=== PATIENT | female | born 1950 | race Caucasian/White ===

== ENCOUNTER 2021-05-12 08:37 | Day surgery (SDC) | payer MEDICARE, OTHER ==
[~2021-05-12] VITALS: Ht 160 cm; Wt 76.9 kg
[2021-05-12] VITALS (7 sets, daily range): BP systolic 117–142; BP diastolic 48–75
[2021-05-12] MEDS ORDERED: LIDOcaine 1%/PF 5ML 10 MG/ML VIAL ONE ×2 (08:51→10:14)
[2021-05-12] MEDS ORDERED: normal saline 1000ml 1,000 ML IV SCH (09:30)
[2021-05-12 09:36] LABS: BASOPHILS % (AUTO) 0.6 % (0-1); EOSINOPHILS # (AUTO) 0.1 X10'3 (0-0.9); HEMATOCRIT 38.2 % (35.0-45.0); HEMOGLOBIN 12.6 g/dl (12.0-16.0); LYMPHOCYTES # (AUTO) 0.7 X10'3 (1.1-4.8); LYMPHOCYTES % (AUTO) 16.6 % (21-51); MEAN CORPUSCULAR HEMOGLOBIN 28.6 PG (27.0-31.0); MEAN CORPUSCULAR VOLUME 86.7 FL (78-98); MEAN PLATELET VOLUME 7.5 FL (7.4-10.4); MONOCYTES # (AUTO) 0.4 X10'3 (0-0.9); NEUTROPHILS # (AUTO) 2.8 X10'3 (1.8-7.7); NEUTROPHILS % (AUTO) 68.8 % (42-75); PLATELET COUNT 214 X10'3 (140-440); RED CELL DISTRIBUTION WIDTH 16.1 % (11.5-14.5)
[2021-05-12] MEDS ORDERED: CHOL10006 PO (09:43)
[2021-05-12] MEDS ORDERED: OMEG10006 PO (09:43)
[2021-05-12] MEDS ORDERED: VITA1CAP PO (09:43)
[2021-05-12] MEDS ORDERED: ESCI20TA15 PO (09:43)
[2021-05-12] MEDS ORDERED: ASPI81TA30 PO (09:43)
[2021-05-12] MEDS ORDERED: HYDR25TA5 PO (09:43)
[2021-05-12] MEDS ORDERED: BIOT1TAB7 PO (09:43)
[2021-05-12] MEDS ORDERED: DULO-31 PO (09:43)
[2021-05-12] MEDS ORDERED: SIMV-42 PO (09:43)
[2021-05-12] MEDS ORDERED: LISI-790 PO (09:43)
[2021-05-12] MEDS ORDERED: UBID50TA3 PO (09:43)
[2021-05-12] MEDS ORDERED: midazolam 1 mg/ML 2ml injection ONE ×2 (10:14→11:13)
[2021-05-12] MEDS ORDERED: fentaNYL/PF 50MCG/1 ML 2ML syringe ONE ×2 (10:14→11:13)
[2021-05-12] MEDS ORDERED: heparin sodium, porcine/PF 100unit/ml 5ML syringe ONE (10:14)
[2021-05-12] MEDS ORDERED: LIDOcaine 1% W/epiNEPHrine 1:200,000 10ml vial ONE ×2 (11:10→11:58)
[2021-05-12] MEDS ORDERED: gelatin sponge, absorbable (Gelfoam 12-7MM) sponge TP ONE (11:40)
== END 2021-05-12 14:20 | disposition home or self-care (01) ==
LOC: SSTAY O 08:37
PROVIDERS: ATTEND Preventive Medicine Aerospace Medicine
DX: K76.89 Other specified diseases of liver (principal); C21.8 Malignant neoplasm of overlapping sites of rectum, anus and anal canal; C78.7 Secondary malignant neoplasm of liver and intrahepatic bile duct; Z88.0 Allergy status to penicillin; Z79.899 Other long term (current) drug therapy; Z79.82 Long term (current) use of aspirin
CPT/HCPCS: 36415; 36561; 47000; 76937; 76942; 77001; 85025; 85610; 99152; 99153; C1769; C1788; C1894; J1642; J2250; J3010; 88305; 88341; 88342

== ENCOUNTER 2025-07-25 06:52 | Day surgery (SDC) | payer MEDICARE, OTHER ==
[2025-07-23 10:52] LABS: CREATININE 0.85 MG/DL (0.40-0.90); MEAN PLATELET VOLUME 7.8 FL (7.4-10.4); PRE OP ALT 14 U/L (30-65); PRE OP ANION GAP 7 (8-16); PRE OP AST 19 U/L (10-37); PRE OP BILIRUB, TOTAL 0.4 MG/DL (0.0-1.0); PRE OP GLUCOSE 80 MG/DL (70-104); PRE OP HEMATOCRIT 39.7 % (35.0-45.0); PRE OP HEMOGLOBIN 13.6 g/dL (12.0-16.0); PRE OP PLATELET COUNT 197 X10'3 (140-440); PRE OP POTASSIUM 3.5 MMOL/L (3.4-5.1); PRE OP SODIUM 144 MMOL/L (135-145); PRE OP WHITE BLOOD COUNT 4.9 10'3 (4.8-10.8); RED CELL DISTRIBUTION WIDTH 15.9 % (11.5-14.5); TOTAL CARBON DIOXIDE 31.1 MMOL/L (24-32); eGFR 65 ML/MIN
[~2025-07-25] VITALS: Ht 160 cm; Wt 84.0 kg
[~2025-07-25 06:52] MED LIST: ASPI81TA30 PO; CHOL10006 PO; DULO20CA18 PO; HYDR25TA5 PO; OMEG10006 PO; SIMV-42 PO; UBID50TA3 PO; VITA1CAP PO; ringers solution, lacted 1,000 ML IV SCH
[2025-07-25 07:58] VITALS: RESP 15; O2SAT 96
[2025-07-25] MEDS: clindamycin-Cleocin 900mg/D5W 50 ML IV ONE (08:03)
[2025-07-25 08:15] VITALS: BP 135/76; PULSE 76; RESP 15; TEMP 97.5; O2SAT 95
[2025-07-25] MEDS ORDERED: ringers solution, lacted 1,000 ML IV SCH (09:35)
[2025-07-25] MEDS ORDERED: fentaNYL/PF 50MCG/1 ML 2ML syringe IV PRN ×2 (09:35)
[2025-07-25] MEDS ORDERED: hydrALAZINE 20mg/ml inj. IV PRN (09:35)
[2025-07-25] MEDS ORDERED: labetalol 20mg/4ml (5mg/ml) syringe IV PRN (09:35)
[2025-07-25] MEDS ORDERED: morphine 4 MG/ML inj SYRINge IV PRN (09:35)
[2025-07-25] MEDS ORDERED: ondansetron/PF 4mg/2ml inj IV PRN (09:35)
[2025-07-25] MEDS ORDERED: BUPIVAcaine/PF 2.5mg/ml (0.25%) 10ml vial ONE (09:47)
[2025-07-25] MEDS ORDERED: methylene blue (5mg/ml) 50mg/10ml ampul IV ONE (09:47)
[2025-07-25] MEDS ORDERED: LIDOcaine 1% (10mg/ml)w/preservative inj. 20ml MDV ONE (09:47)
[2025-07-25] MEDS ORDERED: BUPIVACAINE liposomal/PF 13.3 MG/ML 10mL vial IM ONE ×2 (09:48→09:53)
[2025-07-25] MEDS ORDERED: dexamethasone sod phosphate 4mg/ml inj. ONE (10:22)
[2025-07-25] MEDS ORDERED: midazolam 1 mg/ML 2ml injection ONE (10:23)
[2025-07-25] MEDS ORDERED: ePHEDrine 50MG/ML INJ. ONE (10:23)
[2025-07-25] MEDS ORDERED: fentaNYL/PF 50MCG/1 ML 2ML syringe ONE (10:23)
[2025-07-25] MEDS ORDERED: ondansetron/PF 4mg/2ml inj ONE (10:24)
[2025-07-25] MEDS ORDERED: propofol inj 20 ML IV ONE (10:24)
[2025-07-25] MEDS ORDERED: LIDOcaine 1%/PF 5ML 10 MG/ML VIAL ONE (10:24)
[2025-07-25] MEDS ORDERED: acetaminophen 1,000mg/100ml IV 100 ML IV ONE (10:25)
[2025-07-25] MEDS ORDERED: bacitracin 15gm ointment TP ONE (11:22)
[2025-07-25] MEDS: LIDOcaine 1% 30ml preserv. free vial IJ ONE (11:31)
[2025-07-25] MEDS: BUPIVAcaine/PF 2.5mg/ml (0.25%) 10ml vial IJ ONE (11:31)
[2025-07-25 11:43] VITALS: BP 145/83; PULSE 70; RESP 16; O2SAT 98
[2025-07-25 11:50] VITALS: BP 140/75; PULSE 100; RESP 13; O2SAT 95
--- NOTE | 2025-07-25 11:51 | OPERATIVE REPORT ---
Operative Report Providers to CC: RUTH CALLE P DO ~ Date of Procedure: Jul 25, 2025 Pre-Operative Diagnosis: Right breast invasive ductal carcinoma Post-Operative Diagnosis SAME as PRE-Op Procedure Performed Right breast wire localized lumpectomy with KARYN pattern maker probe Reading and interpretation of specimen radiograph Surgeon: Dr. Ruth Calle Wood Tool Maker Jane García PA-C Anesthesiologist: Darryl Samson Type of Anesthesia: General (LMA) Findings: Marker and tracker detected on specimen radiograph Complications None Estimated Blood Loss: Less than 12 mL Specimen Removed: Right breast wire localized lumpectomy and medial margin Description of Procedure: Haven is a 74-year-old female who was diagnosed with right breast invasive ductal carcinoma. After extensive conversation and discussion about the surgical options. She decided to move forward with breast conservation. The sentinel lymph nodes were not be sample secondary to her age and the type of cancer that she was diagnosed with. She was seen in the preoperative holding area by myself and the anesthesiologist. The right breast was marked with my initials. She had SCDs on an IV placed. Antibiotics were hanging at the bedside. She was taken to the OR and placed on table in supine position. Her arms were extended. General anesthesia was administered with an LMA. The right breast was scanned with the KARYN probe and the skin was marked approximately at the 12:30-1 o'clock area just outside the areola. The patient was prepped and draped in a sterile fashion a time-out was performed and agreed upon. I a proposed incision was made with a marking pen and the area was anesthetized with 1% lidocaine. The incision was made with a 15 blade and extended through the deep dermal layer with the cutting on the cautery. Jordan retractors were p laced for visualization and the KARYN pattern maker probe guided my dissection. Once I dissected and excised the tissue it was oriented with short stitch superior, long suture lateral, double suture deep and secured to the specimen radiograph board and placed in the Faxitron machine. The two markers were identified. Which were placed a little more medially. I reexcised and medial margin and the suture marked the final margin. Both specimens were placed in formalin off the field. The cavity was copiously irrigated and hemostasis achieved with Bovie electrocautery. To some oozing that she had I sprayed 4 mg of Vistaseal into the cavity. Hemostasis was achieved. The cavity was approximated with 3-0 Vicryl althea suture. The deep skin was closed with 3-0 Vicryl suture and the skin was closed with a 4-0 Monocryl running subcuticular stitch. She had very very superficial skin thermal injury at the incision site. Steri-Strips were placed on the corners of the incision and bacitracin over the central aspect where there was mild thermal injury. A dressing was applied along pressure dressings to the site. A breast binder was placed on the patient. She was taken to recovery in stable condition without complication. Thank you all needle and sponge counts were correct. Counts repoted as correct: Yes RUTH CALLE DO Jul 25, 2025 11:51
[2025-07-25 12:00] VITALS: BP 125/69; PULSE 98; RESP 15; O2SAT 93
[2025-07-25 12:10] VITALS: BP 119/74; PULSE 94; RESP 16; O2SAT 90
== END 2025-07-25 12:23 | disposition home or self-care (01) ==
LOC: PAS 06:52
PROVIDERS: ATTEND Surgery
DX: D05.11 Intraductal carcinoma in situ of right breast (principal); N60.11 Diffuse cystic mastopathy of right breast; I10 Essential (primary) hypertension; I72.9 Aneurysm of unspecified site; F10.90 Alcohol use, unspecified, uncomplicated; Z85.9 Personal history of malignant neoplasm, unspecified; Z87.891 Personal history of nicotine dependence; Z88.0 Allergy status to penicillin; Z79.899 Other long term (current) drug therapy; Y90.9 Presence of alcohol in blood, level not specified
CPT/HCPCS: 19301; 36415; 76098; 80053; 82948; 85025; 88307; A4215; A4618; A6253; A6258; A7000; J0131; J0666; J1100; J2003; J2250; J2405; J2704; J3010; J3490; J7030; J7120; Z7506; Z7508; Z7512; Z7610; Q9968